=== PATIENT | male | born 1950 | race Caucasian/White ===

== ENCOUNTER → 2017-09-11 | Outpatient (CLI) | payer MEDICARE, OTHER ==
[2016-09-12 10:05] VITALS: BP 143/87
[~2017-09-11] MED LIST: ADDERALL XR20 MG PO; ADVIL LIQUI-GE200 MG PO; ASPIRIN ADULT L81 M3 PO; DEPO-TESTOS200 MG/M1 IM; GLUCOPHAGE500 MG/TAB PO; HYZAAR 100-251 EACH PO; HYZAAR 25 MG-101 TAB PO; LIPITOR 10MG10 MG PO; NIACIN500 MG PO; NORCO 10-325 T1 EACH PO; NORVASC 10MG10 MG PO; PRILOSEC 20MG20 MG PO; ULTRAM50 M1 PO; VALIUM10 M1 PO
[2017-09-11 07:29] LABS: EOS # 0.3 (0.04-0.40); EOS % 3.8 % (0.0-4.0); HEMATOCRIT 47.2 % (42.0-52.0); HEMOGLOBIN 16.1 g/dL (13.5-18.0); MEAN CELL VOLUME 84 fl (78-100); MEAN CORPUSCULAR HEMOGLOBIN 29 pg (27-31); MEAN CORPUSCULAR HGB CONC 34 g/dL (33-37); MEAN PLATELET VOLUME 10.6 fl (7.4-10.4); MONO # 0.7 (0.20-0.80); NEU # 4.4 (1.40-6.50); PLATELET COUNT 195 K/mm3 (130-400); RED BLOOD COUNT 5.59 M/mm3 (4.20-5.60); RED CELL DISTRIBUTION WIDTH 14.8 % (11.5-14.5); WHITE BLOOD COUNT 7.4 K/mm3 (4.8-10.8)
[2017-09-11 07:52] LABS: ALBUMIN 4.3 g/dL (3.5-5.0); BUN/CREATININE RATIO 13.7 (6.0-26.0); CALCIUM 9.2 mg/dL (8.4-10.2); POTASSIUM 4.4 mmol/L (3.6-5.0); TOTAL BILIRUBIN 1.4 mg/dL (0.2-1.3); TOTAL PROTEIN 7.2 g/dL (6.3-8.2)
[2017-09-11 08:45] LABS: ERYTHROCYTE SEDIMENTATION RATE 2 mm/hr (0-20); URINE APPEARANCE CLEAR; URINE BILIRUBIN NEGATIVE (NEGATIVE); URINE BLOOD NEGATIVE (NEGATIVE); URINE COLOR YELLOW; URINE GLUCOSE NEGATIVE (NEGATIVE); URINE KETONE NEGATIVE (NEGATIVE); URINE NITRATE NEGATIVE (NEGATIVE); URINE PROTEIN(semi-quant) NEGATIVE (NEGATIVE); URINE UROBILINOGEN NORMAL (NORMAL)
[2017-09-11 08:46] LABS: URINE LEUKOCYTE ESTERASE NEGATIVE (NEGATIVE); URINE MUCUS PRESENT (NOT PRESENT); URINE WBC 0-1 /hpf (0-3)
== END ==
LOC: LAB 07:15
PROVIDERS: Internal Medicine
DX: I10 Essential (primary) hypertension (principal); E11.9 Type 2 diabetes mellitus without complications; R97.20 Elevated prostate specific antigen [PSA]; E78.5 Hyperlipidemia, unspecified; Z12.11 Encounter for screening for malignant neoplasm of colon; R20.2 Paresthesia of skin

== ENCOUNTER → 2017-09-14 | Outpatient (CLI) | payer MEDICARE, OTHER ==
[~2017-09-14] VITALS: Ht 172.7 cm; Wt 128.2 kg
[~2017-09-14] MED LIST changes: +FLOMAX0.4 MG PO
[2017-09-14 12:05] VITALS: BP 128/78
== END ==
LOC: AMSURD 11:17
DX: R06.02 Shortness of breath (principal)

== ENCOUNTER → 2017-12-27 | Outpatient (CLI) | payer MEDICARE, OTHER ==
[2017-09-14 12:05] VITALS: BP 128/78
== END ==
LOC: LAB 07:17
DX: R20.2 Paresthesia of skin (principal); Z88.0 Allergy status to penicillin

== ENCOUNTER → 2018-02-14 | Outpatient (CLI) | payer MEDICARE, OTHER ==
[2017-09-14 12:05] VITALS: BP 128/78
== END ==
LOC: RAD 06:52
DX: M48.02 Spinal stenosis, cervical region (principal); M25.78 Osteophyte, vertebrae

== ENCOUNTER 2018-05-18 10:30 | Outpatient (RCR) | payer MEDICARE, OTHER ==
[2017-09-14 12:05] VITALS: BP 128/78
== END 2018-05-18 11:00 | disposition home or self-care (01) ==
LOC: PT 10:30
DX: M54.12 Radiculopathy, cervical region (principal)

== ENCOUNTER → 2018-09-13 | Outpatient (CLI) | payer MEDICARE, OTHER ==
[2017-09-14 12:05] VITALS: BP 128/78
[~2018-09-13] MED LIST changes: +CYANOCOBAL1000 MCG/1 IM; +FINASTERIDE5 M1 PO; +ZANTAC300 MG PO
[2018-09-13 15:44] LABS: EOS # 0.3 (0.04-0.40); EOS % 4.7 % (0.0-4.0); HEMATOCRIT 47.5 % (42.0-52.0); HEMOGLOBIN 16.2 g/dL (13.5-18.0); LYMPH# 1.7 (1.50-4.00); MEAN CELL VOLUME 89 fl (78-100); MEAN CORPUSCULAR HEMOGLOBIN 30 pg (27-31); MEAN CORPUSCULAR HGB CONC 34 g/dL (33-37); MEAN PLATELET VOLUME 11.9 fl (7.4-10.4); MONO # 0.7 (0.20-0.80); NEU # 4.2 (1.40-6.50); PLATELET COUNT 176 K/mm3 (130-400); RED BLOOD COUNT 5.34 M/mm3 (4.20-5.60)
[2018-09-13 17:17] LABS: ALBUMIN 4.5 g/dL (3.5-5.0); POTASSIUM 4.2 mmol/L (3.6-5.0)
[2018-09-13 17:34] LABS: URINE APPEARANCE CLEAR; URINE BILIRUBIN NEGATIVE (NEGATIVE); URINE BLOOD NEGATIVE (NEGATIVE); URINE COLOR YELLOW; URINE GLUCOSE NEGATIVE (NEGATIVE); URINE KETONE NEGATIVE (NEGATIVE); URINE LEUKOCYTE ESTERASE NEGATIVE (NEGATIVE); URINE NITRATE NEGATIVE (NEGATIVE); URINE PROTEIN(semi-quant) 1+ mg/dL (NEGATIVE); URINE UROBILINOGEN NORMAL (NORMAL)
[2018-09-13 17:35] LABS: ERYTHROCYTE SEDIMENTATION RATE 1 mm/hr (0-20); URINE MUCUS PRESENT (NOT PRESENT)
== END ==
LOC: LAB 07:58
PROVIDERS: Internal Medicine
DX: Z12.11 Encounter for screening for malignant neoplasm of colon (principal); I10 Essential (primary) hypertension; E11.9 Type 2 diabetes mellitus without complications; R97.20 Elevated prostate specific antigen [PSA]; E78.5 Hyperlipidemia, unspecified; R20.2 Paresthesia of skin

== ENCOUNTER → 2018-09-17 | Outpatient (CLI) | payer MEDICARE, OTHER ==
[~2018-09-17] VITALS: Ht 172.7 cm; Wt 127.7 kg
[2018-09-17 12:52] VITALS: BP 124/72
== END ==
LOC: AMSURD 12:05
DX: M51.37 Other intervertebral disc degeneration, lumbosacral region (principal); N20.0 Calculus of kidney; M19.041 Primary osteoarthritis, right hand; M19.031 Primary osteoarthritis, right wrist; M19.042 Primary osteoarthritis, left hand; I49.3 Ventricular premature depolarization

== ENCOUNTER → 2019-04-10 | Outpatient (CLI) | payer MEDICARE, OTHER ==
[2018-09-17 12:52] VITALS: BP 124/72
== END ==
LOC: RAD 13:30
DX: M47.22 Other spondylosis with radiculopathy, cervical region (principal); M48.02 Spinal stenosis, cervical region

== ENCOUNTER → 2019-06-28 | Outpatient (CLI) | payer MEDICARE, OTHER ==
[2018-09-17 12:52] VITALS: BP 124/72
== END ==
LOC: CARDREHAB 07:46
DX: I10 Essential (primary) hypertension (principal); E78.5 Hyperlipidemia, unspecified; R06.02 Shortness of breath; Z79.1 Long term (current) use of non-steroidal anti-inflammatories (NSAID); Z79.84 Long term (current) use of oral hypoglycemic drugs; Z79.899 Other long term (current) drug therapy
CPT/HCPCS: A9500

== ENCOUNTER → 2019-09-02 | Outpatient (CLI) | payer MEDICARE, OTHER ==
[2018-09-17 12:52] VITALS: BP 124/72
[2019-09-02 10:57] LABS: EOS # 0.3 (0.04-0.40); EOS % 2.2 % (0.0-4.0); HEMATOCRIT 49.6 % (42.0-52.0); HEMOGLOBIN 16.6 g/dL (13.5-18.0); LYMPH# 2.1 (1.50-4.00); MEAN CELL VOLUME 89 fl (78-100); MEAN CORPUSCULAR HEMOGLOBIN 30 pg (27-31); MEAN CORPUSCULAR HGB CONC 34 g/dL (33-37); MEAN PLATELET VOLUME 10.5 fl (7.4-10.4); MONO # 1.3 (0.20-0.80); PLATELET COUNT 209 K/mm3 (130-400); RED BLOOD COUNT 5.59 M/mm3 (4.20-5.60); RED CELL DISTRIBUTION WIDTH 14.1 % (11.5-14.5); WHITE BLOOD COUNT 12.8 K/mm3 (4.8-10.8)
[2019-09-02 11:23] LABS: ALBUMIN 4.6 g/dL (3.4-4.8)
[2019-09-02 11:24] LABS: POTASSIUM 4.2 mmol/L (3.5-5.1)
[2019-09-02 11:25] LABS: CALCIUM 9.7 mg/dL (8.3-10.5)
[2019-09-02 11:26] LABS: TOTAL PROTEIN 7.3 g/dL (6.2-8.1)
[2019-09-02 11:28] LABS: TOTAL BILIRUBIN 2.1 mg/dL (0.2-1.2)
== END ==
LOC: RAD 10:37
PROVIDERS: Internal Medicine
DX: J98.6 Disorders of diaphragm (principal)

== ENCOUNTER → 2019-10-31 | Outpatient (CLI) | payer MEDICARE, OTHER ==
[2018-09-17 12:52] VITALS: BP 124/72
[2019-10-31 09:30] LABS: URINE WBC 0 /hpf (0-3)
[2019-10-31 09:58] LABS: EOS # 0.3 (0.04-0.40); EOS % 4.1 % (0.0-4.0); HEMATOCRIT 47.7 % (42.0-52.0); HEMOGLOBIN 16.1 g/dL (13.5-18.0); LYMPH# 2.1 (1.50-4.00); MEAN CELL VOLUME 89 fl (78-100); MEAN CORPUSCULAR HEMOGLOBIN 30 pg (27-31); MEAN CORPUSCULAR HGB CONC 34 g/dL (33-37); MEAN PLATELET VOLUME 10.5 fl (7.4-10.4); MONO # 0.7 (0.20-0.80); NEU # 4.1 (1.40-6.50); PLATELET COUNT 181 K/mm3 (130-400); RED BLOOD COUNT 5.35 M/mm3 (4.20-5.60); RED CELL DISTRIBUTION WIDTH 14.5 % (11.5-14.5); WHITE BLOOD COUNT 7.3 K/mm3 (4.8-10.8)
[2019-10-31 10:02] LABS: ALBUMIN 4.6 g/dL (3.4-4.8); POTASSIUM 4.1 mmol/L (3.5-5.1)
[2019-10-31 10:04] LABS: CALCIUM 9.6 mg/dL (8.3-10.5)
[2019-10-31 10:05] LABS: TOTAL PROTEIN 7.2 g/dL (6.2-8.1)
[2019-10-31 10:07] LABS: TOTAL BILIRUBIN 1.5 mg/dL (0.2-1.2)
[2019-10-31 10:11] LABS: MAGNESIUM 2.07 mg/dL (1.60-2.60)
[2019-10-31 10:21] LABS: URINE APPEARANCE CLEAR; URINE BILIRUBIN NEGATIVE (NEGATIVE); URINE BLOOD NEGATIVE (NEGATIVE); URINE COLOR YELLOW; URINE GLUCOSE NEGATIVE (NEGATIVE); URINE KETONE NEGATIVE (NEGATIVE); URINE LEUKOCYTE ESTERASE NEGATIVE (NEGATIVE); URINE MUCUS PRESENT (NOT PRESENT); URINE NITRATE NEGATIVE (NEGATIVE); URINE PROTEIN(semi-quant) 1+ mg/dL (NEGATIVE); URINE UROBILINOGEN NORMAL (NORMAL)
[2019-10-31 11:00] LABS: ERYTHROCYTE SEDIMENTATION RATE 3 mm/hr (0-20)
== END ==
LOC: LAB 09:20
PROVIDERS: Internal Medicine
DX: Z12.11 Encounter for screening for malignant neoplasm of colon (principal); I10 Essential (primary) hypertension; E78.2 Mixed hyperlipidemia; E11.9 Type 2 diabetes mellitus without complications; R97.20 Elevated prostate specific antigen [PSA]; R20.2 Paresthesia of skin

== ENCOUNTER 2019-12-19 11:00 | Outpatient (RCR) | payer MEDICARE, OTHER ==
[2018-09-17 12:52] VITALS: BP 124/72
== END 2019-12-19 11:30 | disposition still patient (30) ==
LOC: PT 11:00
DX: M25.619 Stiffness of unspecified shoulder, not elsewhere classified (principal); R53.1 Weakness; Z98.890 Other specified postprocedural states

== ENCOUNTER → 2020-05-04 | Outpatient (CLI) | payer MEDICARE, OTHER ==
[2018-09-17 12:52] VITALS: BP 124/72
[2020-05-04 10:01] LABS: BASO # 0.1 (0.02-0.10); EOS # 0.4 (0.04-0.40); EOS % 4.6 % (0.0-4.0); HEMATOCRIT 49.8 % (42.0-52.0); HEMOGLOBIN 16.6 g/dL (13.5-18.0); LYMPH# 2.1 (1.50-4.00); MEAN CELL VOLUME 89 fl (78-100); MEAN CORPUSCULAR HEMOGLOBIN 30 pg (27-31); MEAN CORPUSCULAR HGB CONC 33 g/dL (33-37); MEAN PLATELET VOLUME 10.8 fl (7.4-10.4); MONO # 0.7 (0.20-0.80); NEU # 4.6 (1.40-6.50); PLATELET COUNT 177 K/mm3 (130-400); RED BLOOD COUNT 5.57 M/mm3 (4.20-5.60); WHITE BLOOD COUNT 7.8 K/mm3 (4.8-10.8)
[2020-05-04 10:04] LABS: ALBUMIN 4.4 g/dL (3.4-4.8); POTASSIUM 4.4 mmol/L (3.5-5.1)
[2020-05-04 10:07] LABS: TOTAL PROTEIN 7.4 g/dL (6.2-8.1)
[2020-05-04 10:09] LABS: TOTAL BILIRUBIN 1.6 mg/dL (0.2-1.2)
[2020-05-04 10:14] LABS: MAGNESIUM 2.01 mg/dL (1.60-2.60)
[2020-05-04 11:23] LABS: ERYTHROCYTE SEDIMENTATION RATE 0 mm/hr (0-20)
[2020-05-04 22:22] LABS: TESTOSTERONE 832 ng/dL (221-716)
== END ==
LOC: LAB 09:45
PROVIDERS: Internal Medicine
DX: E78.5 Hyperlipidemia, unspecified (principal); I10 Essential (primary) hypertension; E78.2 Mixed hyperlipidemia; E11.9 Type 2 diabetes mellitus without complications; R23.0 Cyanosis; R20.2 Paresthesia of skin

== ENCOUNTER → 2020-12-17 | Outpatient (CLI) | payer MEDICARE, OTHER ==
[2018-09-17 12:52] VITALS: BP 124/72
[2020-12-17 08:52] LABS: EOS # 0.3 (0.04-0.40); EOS % 3.6 % (0.0-4.0); HEMATOCRIT 47.5 % (42.0-52.0); HEMOGLOBIN 15.9 g/dL (13.5-18.0); LYMPH# 2.5 (1.50-4.00); MEAN CELL VOLUME 92 fl (78-100); MEAN CORPUSCULAR HEMOGLOBIN 31 pg (27-31); MEAN CORPUSCULAR HGB CONC 34 g/dL (33-37); MEAN PLATELET VOLUME 10.5 fl (7.4-10.4); MONO # 0.8 (0.20-0.80); NEU # 4.4 (1.40-6.50); PLATELET COUNT 191 K/mm3 (130-400); RED BLOOD COUNT 5.18 M/mm3 (4.20-5.60); RED CELL DISTRIBUTION WIDTH 13.7 % (11.5-14.5); WHITE BLOOD COUNT 8.1 K/mm3 (4.8-10.8)
[2020-12-17 08:59] LABS: ALBUMIN 4.2 g/dL (3.4-4.8); POTASSIUM 4.4 mmol/L (3.5-5.1)
[2020-12-17 09:00] LABS: CALCIUM 9.2 mg/dL (8.3-10.5)
[2020-12-17 09:02] LABS: TOTAL PROTEIN 6.8 g/dL (6.2-8.1)
[2020-12-17 09:03] LABS: TOTAL BILIRUBIN 1.3 mg/dL (0.2-1.2)
[2020-12-17 09:38] LABS: URINE APPEARANCE CLEAR; URINE BILIRUBIN NEGATIVE (NEGATIVE); URINE BLOOD NEGATIVE (NEGATIVE); URINE COLOR YELLOW; URINE GLUCOSE NEGATIVE (NEGATIVE); URINE KETONE NEGATIVE (NEGATIVE); URINE LEUKOCYTE ESTERASE NEGATIVE (NEGATIVE); URINE MUCUS PRESENT (NOT PRESENT); URINE NITRATE NEGATIVE (NEGATIVE); URINE PROTEIN(semi-quant) NEGATIVE (NEGATIVE); URINE UROBILINOGEN NORMAL (NORMAL)
[2020-12-17 09:55] LABS: ERYTHROCYTE SEDIMENTATION RATE 2 mm/hr (0-20)
[2020-12-17 18:11] LABS: TESTOSTERONE 668 ng/dL (221-716)
== END ==
LOC: LAB 08:16
PROVIDERS: Internal Medicine
DX: Z12.11 Encounter for screening for malignant neoplasm of colon (principal); Z12.5 Encounter for screening for malignant neoplasm of prostate; K90.9 Intestinal malabsorption, unspecified; E11.9 Type 2 diabetes mellitus without complications; E78.2 Mixed hyperlipidemia; E23.0 Hypopituitarism; I10 Essential (primary) hypertension; E53.8 Deficiency of other specified B group vitamins

== ENCOUNTER → 2020-12-22 | Outpatient (CLI) | payer MEDICARE, OTHER ==
[2018-09-17 12:52] VITALS: BP 124/72
== END ==
LOC: RAD 14:32
DX: Z12.11 Encounter for screening for malignant neoplasm of colon (principal); Z12.5 Encounter for screening for malignant neoplasm of prostate; I10 Essential (primary) hypertension; K90.9 Intestinal malabsorption, unspecified; E11.9 Type 2 diabetes mellitus without complications; E78.2 Mixed hyperlipidemia; E23.0 Hypopituitarism; E53.8 Deficiency of other specified B group vitamins

== ENCOUNTER → 2021-10-26 | Outpatient (CLI) | payer MEDICARE, OTHER ==
[2021-10-26 12:40] LABS: ALBUMIN 4.4 g/dL (3.4-4.8)
[2021-10-26 12:41] LABS: POTASSIUM 4.1 mmol/L (3.5-5.1)
[2021-10-26 12:42] LABS: CALCIUM 9.7 mg/dL (8.3-10.5)
[2021-10-26 12:43] LABS: TOTAL PROTEIN 7.1 g/dL (6.2-8.1)
[2021-10-26 12:45] LABS: TOTAL BILIRUBIN 1.1 mg/dL (0.2-1.2)
[2021-10-26 13:22] LABS: BASO # 0.07 K/mm3 (0.02-0.10); EOS # 0.26 K/mm3 (0.04-0.40); EOS % 2.7 % (0.0-4.0); HEMATOCRIT 44.7 % (42.0-52.0); HEMOGLOBIN 15.3 g/dL (13.5-18.0); LYMPH# 2.06 K/mm3 (1.50-4.00); MEAN CELL VOLUME 90 fl (78-100); MEAN CORPUSCULAR HEMOGLOBIN 31 pg (27-31); MEAN CORPUSCULAR HGB CONC 34 g/dL (33-37); MEAN PLATELET VOLUME 11.4 fl (7.4-10.4); MONO # 0.89 K/mm3 (0.20-0.80); NEU # 6.23 K/mm3 (1.40-6.50); PLATELET COUNT 247 K/mm3 (130-400); RED BLOOD COUNT 4.96 M/mm3 (4.20-5.60); RED CELL DISTRIBUTION WIDTH 13.3 % (11.5-14.5); WHITE BLOOD COUNT 9.6 K/mm3 (4.8-10.8)
== END ==
LOC: LAB 10:32
PROVIDERS: Internal Medicine
DX: M51.36 Other intervertebral disc degeneration, lumbar region (principal); M54.16 Radiculopathy, lumbar region; K90.9 Intestinal malabsorption, unspecified

== ENCOUNTER → 2021-11-02 | Outpatient (CLI) | payer MEDICARE, OTHER | LOC: RAD 06:54 | DX: M51.27 Other intervertebral disc displacement, lumbosacral region (principal); M48.07 Spinal stenosis, lumbosacral region; M47.817 Spondylosis without myelopathy or radiculopathy, lumbosacral region; M47.26 Other spondylosis with radiculopathy, lumbar region ==

== ENCOUNTER 2021-12-07 11:00 | Outpatient (RCR) | payer MEDICARE, OTHER | END 2021-12-30 | disposition still patient (30) | LOC: PT | DX: M54.16 Radiculopathy, lumbar region (principal) ==

== ENCOUNTER 2022-01-04 10:51 | Outpatient (RCR) | payer MEDICARE, OTHER | END 2022-01-18 17:00 | disposition home or self-care (01) | LOC: PT 10:51 | DX: M54.16 Radiculopathy, lumbar region (principal) ==

== ENCOUNTER → 2022-04-02 | Outpatient (CLI) | payer MEDICARE, OTHER ==
[2022-04-02 16:25] LABS: BASO # 0.01 K/mm3 (0.02-0.10); HEMATOCRIT 46.8 % (42.0-52.0); HEMOGLOBIN 15.7 g/dL (13.5-18.0); MEAN CELL VOLUME 92 fl (78-100); MEAN CORPUSCULAR HEMOGLOBIN 31 pg (27-31); MEAN CORPUSCULAR HGB CONC 34 g/dL (33-37); MEAN PLATELET VOLUME 10.4 fl (7.4-10.4); MONO # 1.31 K/mm3 (0.20-0.80); NEU # 14.37 K/mm3 (1.40-6.50); PLATELET COUNT 157 K/mm3 (130-400); RED BLOOD COUNT 5.07 M/mm3 (4.20-5.60); RED CELL DISTRIBUTION WIDTH 13.7 % (11.5-14.5); WHITE BLOOD COUNT 16.8 K/mm3 (4.8-10.8)
[2022-04-02 16:29] LABS: ALBUMIN 4.4 g/dL (3.4-4.8)
[2022-04-02 16:31] LABS: TOTAL PROTEIN 7.6 g/dL (6.2-8.1)
[2022-04-02 16:33] LABS: TOTAL BILIRUBIN 3.2 mg/dL (0.2-1.2)
== END ==
LOC: LAB 15:35
PROVIDERS: Nurse Practitioner
DX: R30.9 Painful micturition, unspecified (principal); Z20.822 Contact with and (suspected) exposure to COVID-19

== ENCOUNTER → 2022-05-19 | Outpatient (CLI) | payer MEDICARE, OTHER | LOC: LAB 11:10 | DX: Z02.4 Encounter for examination for driving license (principal); E11.9 Type 2 diabetes mellitus without complications ==

== ENCOUNTER 2023-10-30 11:25 | Outpatient (RCR) | payer MEDICARE, OTHER ==
[2023-10-09 11:45] VITALS: BP 167/92
[2023-10-23 12:14] VITALS: BP 162/91
[~2023-10-30] VITALS: Ht 172.7 cm; Wt 127.7 kg
[2023-10-30 11:00] VITALS: BP 148/79
[~2023-10-30 11:25] MED LIST changes: +Testosterone Cyp in Oil 200 MG/ML 1 ML VIAL IM ONE
[2023-10-30] MEDS ORDERED: Testosterone Cyp in Oil 200 MG/ML 1 ML VIAL IM ONE (12:00)
== END 2023-11-01 | disposition home or self-care (01) ==
LOC: AMSURD
DX: E53.8 Deficiency of other specified B group vitamins (principal)
CPT/HCPCS: J1071; J3420

== ENCOUNTER → 2023-12-26 | Outpatient (CLI) | payer MEDICARE, OTHER ==
[~2023-12-26] MED LIST changes: -Testosterone Cyp in Oil 200 MG/ML 1 ML VIAL IM ONE
[2023-12-26 10:36] LABS: BASO # 0.02 K/mm3 (0.02-0.10); EOS # 0.32 K/mm3 (0.04-0.40); EOS % 4.8 % (0.0-4.0); HEMATOCRIT 45.8 % (42.0-52.0); HEMOGLOBIN 15.5 g/dL (13.5-18.0); LYMPH# 2.35 K/mm3 (1.50-4.00); MEAN CELL VOLUME 90 fl (78-100); MEAN CORPUSCULAR HEMOGLOBIN 30 pg (27-31); MEAN CORPUSCULAR HGB CONC 34 g/dL (33-37); MEAN PLATELET VOLUME 10.4 fl (7.4-10.4); MONO # 0.69 K/mm3 (0.20-0.80); NEU # 3.27 K/mm3 (1.40-6.50); PLATELET COUNT 170 K/mm3 (130-400); WHITE BLOOD COUNT 6.7 K/mm3 (4.8-10.8)
[2023-12-26 10:38] LABS: ALBUMIN 4.4 g/dL (3.4-4.8)
[2023-12-26 10:40] LABS: TOTAL PROTEIN 7.4 g/dL (6.2-8.1)
[2023-12-26 10:42] LABS: TOTAL BILIRUBIN 1.4 mg/dL (0.2-1.2)
[2023-12-26 10:47] LABS: MAGNESIUM 1.7 mg/dL (1.60-2.60); PH-URINE 5.5 (5.0 - 8.0); URINE APPEARANCE CLEAR (CLEAR); URINE BILIRUBIN NEGATIVE (NEGATIVE); URINE BLOOD NEGATIVE (NEGATIVE); URINE COLOR YELLOW (YELLOW); URINE GLUCOSE NEGATIVE (NEGATIVE); URINE KETONE NEGATIVE (NEGATIVE); URINE LEUKOCYTE ESTERASE NEGATIVE (NEGATIVE); URINE NITRATE NEGATIVE (NEGATIVE); URINE PROTEIN(semi-quant) NEGATIVE (NEGATIVE)
[2023-12-26 10:48] LABS: URINE MUCUS PRESENT (NOT PRESENT)
[2023-12-26 23:50] LABS: TESTOSTERONE 376 ng/dL (221-716)
[2023-12-26 23:59] LABS: HEPATITIS C VIRUS ANTIBODY Negative (Negative)
== END ==
LOC: LAB 10:05
PROVIDERS: Internal Medicine
DX: Z12.11 Encounter for screening for malignant neoplasm of colon (principal); Z12.5 Encounter for screening for malignant neoplasm of prostate; Z11.59 Encounter for screening for other viral diseases; I10 Essential (primary) hypertension; E23.0 Hypopituitarism; K90.9 Intestinal malabsorption, unspecified; E78.2 Mixed hyperlipidemia; E11.9 Type 2 diabetes mellitus without complications

== ENCOUNTER → 2024-02-19 | Outpatient (CLI) | payer MEDICARE ==
[~2024-02-19] MED LIST changes: +Testosterone Cyp in Oil 200 MG/ML 1 ML VIAL IM ONE
== END ==
LOC: AMSURD 10:13
DX: E23.0 Hypopituitarism (principal)
CPT/HCPCS: J1071

== ENCOUNTER 2024-02-26 09:50 | Outpatient (RCR) | payer MEDICARE ==
[2024-01-29 10:00] VITALS: BP 147/89
[~2024-02-26 09:50] MED LIST changes: -Testosterone Cyp in Oil 200 MG/ML 1 ML VIAL IM ONE
--- NOTE | 2024-04-12 11:58 | NUR ---
Downtime: An Electronic Health Record (EHR) downtime event occurred during this patient's care. For legal medical record information generated during the downtime period, please reference the patient's legal medical record. Paper or scanned documentation has been incorporated into the legal medical record which is maintained in accordance with Health Information Management (HIM) and record retention policies.
== END 2024-03-01 ==
LOC: AMSURD
DX: E53.8 Deficiency of other specified B group vitamins (principal); E23.0 Hypopituitarism
CPT/HCPCS: J3420

== ENCOUNTER 2024-03-11 09:26 | Outpatient (RCR) | payer MEDICARE ==
[2024-03-11] MEDS ORDERED: Testosterone Cyp in Oil 200 MG/ML 1 ML VIAL IM ONE (09:56)
== END 2024-03-31 | disposition home or self-care (01) ==
LOC: AMSURD
DX: E23.0 Hypopituitarism (principal); E53.8 Deficiency of other specified B group vitamins
CPT/HCPCS: J1071; J3420

== ENCOUNTER → 2024-03-25 | Outpatient (CLI) | payer MEDICARE | LOC: RAD 15:29 | DX: I35.1 Nonrheumatic aortic (valve) insufficiency (principal) ==

== ENCOUNTER 2024-05-27 09:52 | Outpatient (RCR) | payer MEDICARE ==
[2024-05-13 09:08] VITALS: BP 134/77
[~2024-05-27] VITALS: Ht 177.8 cm; Wt 124.7 kg
[~2024-05-27 09:52] MED LIST changes: +Testosterone Cyp in Oil 200 MG/ML 1 ML VIAL IM ONE
[2024-05-27 10:29] VITALS: BP 157/83
== END 2024-06-01 | disposition home or self-care (01) ==
LOC: AMSURD
DX: E53.8 Deficiency of other specified B group vitamins (principal); E23.0 Hypopituitarism; Z79.899 Other long term (current) drug therapy
CPT/HCPCS: J1071; J3420

== ENCOUNTER 2024-06-24 09:18 | Outpatient (RCR) | payer MEDICARE ==
[2024-06-04 09:06] VITALS: BP 147/81
[2024-06-10 10:03] VITALS: BP 140/72
[~2024-06-24] VITALS: Ht 177.8 cm; Wt 124.7 kg
[~2024-06-24 09:18] MED LIST changes: -Testosterone Cyp in Oil 200 MG/ML 1 ML VIAL IM ONE; +Testosterone Cyp in Oil 200 MG/ML 1 ML VIAL IM SCH
[2024-06-24] MEDS ORDERED: Testosterone Cyp in Oil 200 MG/ML 1 ML VIAL IM SCH (09:30)
[2024-06-24 09:31] VITALS: BP 134/84
== END 2024-07-01 | disposition home or self-care (01) ==
LOC: AMSURD
DX: E53.8 Deficiency of other specified B group vitamins (principal); E23.0 Hypopituitarism
CPT/HCPCS: J1071; J3420

== ENCOUNTER 2024-07-29 09:15 | Outpatient (RCR) | payer MEDICARE ==
[2024-07-08 09:31] VITALS: BP 144/80
[~2024-07-29] VITALS: Ht 177.8 cm; Wt 124.7 kg
[~2024-07-29 09:15] MED LIST changes: -Testosterone Cyp in Oil 200 MG/ML 1 ML VIAL IM SCH
[2024-07-29 09:36] VITALS: BP 117/73
[2024-07-29] MEDS ORDERED: Testosterone Cyp in Oil 200 MG/ML 1 ML VIAL IM ONE (09:45)
== END 2024-08-01 | disposition home or self-care (01) ==
LOC: AMSURD
DX: Z51.81 Encounter for therapeutic drug level monitoring (principal); E53.8 Deficiency of other specified B group vitamins; E23.0 Hypopituitarism
CPT/HCPCS: J1071; J3420

== ENCOUNTER → 2024-08-19 | Outpatient (CLI) | payer MEDICARE ==
[~2024-08-19] VITALS: Ht 177.8 cm; Wt 124.7 kg
[~2024-08-19] MED LIST changes: +Testosterone Cyp in Oil 200 MG/ML 1 ML VIAL IM ONE
[2024-08-19 10:31] VITALS: BP 121/80
== END ==
LOC: AMSURD 09:51
DX: E23.0 Hypopituitarism (principal); E53.8 Deficiency of other specified B group vitamins
CPT/HCPCS: J1071; J3420

== ENCOUNTER → 2024-11-18 | Outpatient (CLI) | payer MEDICARE ==
[~2024-11-18] VITALS: Ht 177.8 cm; Wt 124.7 kg
[~2024-11-18] MED LIST changes: +ATORVASTATIN CA10 MG PO; +LOSARTAN POTASS1 TA2 PO; +METFORMIN ER500 MG PO; +MIXED AMPHETAMI25 M1 PO; +NEBIVOLOL HCL10 MG PO
[2024-11-18 09:42] VITALS: BP 158/78
== END ==
LOC: AMSURD 09:30
DX: E53.8 Deficiency of other specified B group vitamins (principal); E23.0 Hypopituitarism
CPT/HCPCS: J1071; J3420

== ENCOUNTER → 2024-12-16 | Outpatient (CLI) | payer MEDICARE ==
[~2024-12-16] VITALS: Ht 177.8 cm; Wt 124.7 kg
[2024-12-16 09:45] VITALS: BP 142/73
== END ==
LOC: AMSURD 09:29
DX: E53.8 Deficiency of other specified B group vitamins (principal)
CPT/HCPCS: J1071; J3420

== ENCOUNTER → 2024-12-23 | Outpatient (CLI) | payer MEDICARE ==
[~2024-12-23] MED LIST changes: -Testosterone Cyp in Oil 200 MG/ML 1 ML VIAL IM ONE
[2024-12-23 14:55] LABS: BASO # 0.04 K/mm3 (0.02-0.10); EOS # 0.19 K/mm3 (0.04-0.40); EOS % 2.1 % (0.0-4.0); HEMATOCRIT 46.2 % (42.0-52.0); HEMOGLOBIN 15.5 g/dL (13.5-18.0); LYMPH# 1.86 K/mm3 (1.50-4.00); MEAN CELL VOLUME 90 fl (78-100); MEAN CORPUSCULAR HEMOGLOBIN 30 pg (27-31); MEAN CORPUSCULAR HGB CONC 34 g/dL (33-37); MEAN PLATELET VOLUME 10.2 fl (7.4-10.4); NEU # 6.18 K/mm3 (1.40-6.50); PLATELET COUNT 205 K/mm3 (130-400); RED BLOOD COUNT 5.12 M/mm3 (4.20-5.60); RED CELL DISTRIBUTION WIDTH 13.1 % (11.5-14.5); WHITE BLOOD COUNT 9.3 K/mm3 (4.8-10.8)
[2024-12-23 14:57] LABS: ALBUMIN 4.6 g/dL (3.4-4.8)
[2024-12-23 14:58] LABS: CALCIUM 10.1 mg/dL (8.3-10.5)
[2024-12-23 14:59] LABS: TOTAL PROTEIN 7.9 g/dL (6.2-8.1)
[2024-12-23 15:01] LABS: TOTAL BILIRUBIN 0.9 mg/dL (0.2-1.2)
[2024-12-23 16:03] LABS: PH-URINE 5.5 (5.0 - 8.0); URINE APPEARANCE CLEAR (CLEAR); URINE BILIRUBIN NEGATIVE (NEGATIVE); URINE COLOR YELLOW (YELLOW); URINE GLUCOSE TRACE (NEGATIVE); URINE KETONE TRACE (NEGATIVE); URINE NITRATE NEGATIVE (NEGATIVE); URINE PROTEIN(semi-quant) TRACE (NEGATIVE)
[2024-12-23 16:04] LABS: URINE BLOOD 3+ (NEGATIVE); URINE LEUKOCYTE ESTERASE NEGATIVE (NEGATIVE); URINE WBC 0-1 /hpf (0-3)
[2024-12-24 00:38] LABS: TESTOSTERONE 921 ng/dL (221-716)
== END ==
LOC: LAB 14:34
PROVIDERS: Internal Medicine
DX: Z12.5 Encounter for screening for malignant neoplasm of prostate (principal); Z12.11 Encounter for screening for malignant neoplasm of colon; I10 Essential (primary) hypertension; E23.0 Hypopituitarism; E78.2 Mixed hyperlipidemia; E11.9 Type 2 diabetes mellitus without complications; N10 Acute pyelonephritis; K90.9 Intestinal malabsorption, unspecified

== ENCOUNTER → 2024-12-24 | Outpatient (CLI) | payer MEDICARE | LOC: RAD 10:18 | DX: N13.30 Unspecified hydronephrosis (principal) ==